=== PATIENT | male | born 1995 | race American Indian/Alaskan Native ===

== ENCOUNTER 2017-01-24 21:33 | Emergency (ER) | payer SELFPAY ==
[2017-01-24 21:57] VITALS: BP 133/62
[2017-01-25] MEDS ORDERED: MOTRIN PO ONE (02:37)
[2017-01-25] MEDS ORDERED: MOTRIN ONE (02:37)
--- NOTE | 2017-01-25 02:45 | XRay Report ---
FINAL REPORT PROCEDURE: XR SHOULDER 2+V RT TECHNIQUE: Right shoulder radiographs including AP views in internal and external rotation and abduction. CPT 18667 HISTORY: right shoulder severe pain and decreased ROM COMPARISON: No prior studies are available for comparison. FINDINGS: Fracture (s) and/or Dislocation(s): None . Joint space(s): Normal . Soft tissues: Normal . Bone mineralization: Normal . Foreign bodies: None . IMPRESSION: Normal Examination
--- NOTE | 2017-01-25 03:07 | Emergency Department Report ---
Upper Extremity - HPI Chief Complaint: Extremity Injury, Upper Stated Complaint: RT SHOULDER PAIN Time Seen by Provider: 01/25/17 01:37 Upper Extremity: Right Shoulder (right shoulder pain 1-2 weeks) Occurred When: >5 Days Severity: moderate, severe Symptoms: Yes Pain with Movement, Yes Deformity, Yes Limited Range of Movement, No Numbness, No Weakness, No Swelling, No Bruising/Ecchymosis, No Laceration or Abrasion Other History: 21-year-old male past medical history none presents with complaint of one to 2 weeks of persistent right shoulder pain. Patient states that he experiences pain radiating through his right shoulder joint when he ranges his right shoulder. 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 States that there may be some association with previous sports activity. Patient has not taken any pain medicine for the discomfort. ED Review of Systems ROS: Stated complaint: RT SHOULDER PAIN Other details as noted in HPI Constitutional: denies: chills, fever Eyes: denies: eye pain, eye discharge, vision change ENT: denies: ear pain, throat pain Respiratory: denies: cough, shortness of breath, wheezing Cardiovascular: denies: chest pain, palpitations Endocrine: no symptoms reported Gastrointestinal: denies: abdominal pain, nausea, diarrhea Genitourinary: denies: urgency, dysuria Musculoskeletal: as per HPI, arthralgia. denies: back pain, joint swelling Skin: denies: rash, lesions Neurological: denies: headache, weakness, paresthesias Psychiatric: denies: anxiety, depression Hematological/Lymphatic: denies: easy bleeding, easy bruising ED Past Medical Hx - Past Medical History Previous Medical History?: No - Social History Smoking Status: Current Some Day Smoker Substance Use Type: None - Medications Home Medications: Home Medications Medication Instructions Recorded Confirmed Last Taken Type Naproxen [Naprosyn TAB] 500 mg PO BID PRN #30 tablet 01/25/17 Unknown Rx Upper Extremity Exam - Exam General: Vital signs noted. No distress. Alert and acting appropriately. Head and Torso: No HEENT Abnormality, No Neck Tenderness, No Chest/Lungs Abnormality, No Abdominal Tenderness, No Back Tenderness Shoulder Exam: Yes Shoulder Tenderness (reproducible tenderness on palpation of the anterior shoulder near the top of the deltoid), No Clavicle Tenderness, No Normal Range of Motion in Shoulder (shoulder abduction above 90 difficult and painful to patient, patient able to cross his arm across his chest and raise his arm up to 90 anteriorly and laterally. There are no signs of infection on the skin shoulder), No Shoulder Deformity, No AC Joint Tenderness Arm Exam: No Arm/Humerus Tenderness, No Arm Deformity Elbow: No Elbow Tenderness, No Normal Range of Motion in Elbow, No Elbow Deformity Forearm: No Forearm Tenderness, No Forearm Deformity, No Pain with Pronation, No Pain with Supination Wrist: Yes Normal ROM in Wrist, No Wrist Tenderness, No Wrist Deformity, No Snuffbox Tenderness, No Pain with Axial Thumb Compression Hand: Yes Normal ROM in Digit(s), No Hand Tenderness, No Hand Deformity, No Digit Tenderness, No Digit(s) Deformity, No Tendon Dysfunction CMS Exam: Yes Normal Distal Pulses (distal pulses and capillary refill intact), No Broken Skin, No Normal Capillary Refill, No Normal Distal Sensation Front/Back of Body, Lg (Color): 1 - Area of patient's discomfort here ED Course Vital Signs 01/24/17 21:55 Temperature 98.7 F Pulse Rate 58 L Respiratory 20 Rate Blood Pressure 133/62 O2 Sat by Pulse 99 Oximetry ED Medical Decision Making - Medical Decision Making A/P: Right shoulder pain, possible rotator cuff injury, possible bursitis 1-naproxen 500 mg twice a day when necessary 2-patient provided with shoulder sling and I advised him to not use a sling on a continual basis to prevent frozen shoulder syndrome 3-I referred patient to primary care and orthopedics. There is no neurovascular compromise of the right upper extremity on exam 4- x-ray shoulder shows no bony deformity Critical care attestation.: If time is entered above; I have spent that time in minutes in the direct care of this critically ill patient, excluding procedure time. ED Disposition Clinical Impression: Right shoulder pain Qualifiers: Chronicity: acute Qualified Code(s): M25.511 - Pain in right shoulder Disposition: TO HOME OR SELFCARE Is pt being admited?: No Does the pt Need Aspirin: No Condition: Stable Instructions: Arthralgia (ED), Shoulder Sprain (ED), Rotator Cuff Injury (ED) Prescriptions: Naproxen [Naprosyn TAB] 500 mg PO BID PRN #30 tablet PRN Reason: Pain Referrals: GABBIE CALHOUN MD [Staff Physician] - 3-5 Days Forms: Work/School Release Form(ED) Time of Disposition: 03:07
== END 2017-01-25 03:33 | disposition home or self-care (01) ==
LOC: ED 21:33
DX: M25.561 Pain in right knee (principal); F17.200 Nicotine dependence, unspecified, uncomplicated; X50.0XXA Overexertion from strenuous movement or load, initial encounter; Y93.89 Activity, other specified; Y99.8 Other external cause status; Y92.89 Other specified places as the place of occurrence of the external cause